=== PATIENT | male | born 1980 | race Caucasian/White ===

== ENCOUNTER 2019-01-24 17:59 | Emergency (ER) | payer OTHER ==
[2019-01-24 18:43] VITALS: BP 110/72; PULSE 76; TEMP 98; BMI 29.5
[2019-01-24] MEDS ORDERED: HEPATITIS B IMMUNE GLOBULIN 5 ML VIAL IM ONE (19:01)
[2019-01-24] MEDS ORDERED: HEPATITIS B VIRUS VACCINE-PF 40 MCG/1 ML VIAL IM ONE (19:02)
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
[2019-02-09 17:55] LABS: HEP B CORE AB, TOT Negative (Negative)
== END 2019-01-24 20:17 | disposition home or self-care (01) ==
LOC: JERFT 17:59 → JER 17:59 → JERFT 20:17
PROC: 3E0234Z Introduction of Serum, Toxoid and Vaccine into Muscle, Percutaneous Approach (ICD-10-PCS; principal; 2019-01-24)
PROC: 3E0234Z Introduction of Serum, Toxoid and Vaccine into Muscle, Percutaneous Approach (ICD-10-PCS; 2019-01-24)
DX: Z77.21 Contact with and (suspected) exposure to potentially hazardous body fluids (principal); Z20.5 Contact with and (suspected) exposure to viral hepatitis; Y35.891A Legal intervention involving other specified means, law enforcement official injured, initial encounter; Y93.89 Activity, other specified; Y92.89 Other specified places as the place of occurrence of the external cause; Y99.0 Civilian activity done for income or pay; Z23 Encounter for immunization
CPT/HCPCS: 36415; 86317; 86704; 86706; 86803; 87340; 87389; 99281-25

== ENCOUNTER 2020-01-28 19:26 | Emergency (ER) | payer OTHER ==
[2020-01-28] MEDS ORDERED: ACETAMINOPHEN 325 MG TABLET (FP) PO ONE (19:31)
[2020-01-28 19:38] VITALS: BP 124/84; PULSE 76; TEMP 98.3; BMI 28.7
[2020-01-28] MEDS ORDERED: ACETAMINOPHEN 325 MG TABLET (FP) ONE (19:40)
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
== END 2020-01-28 20:19 | disposition home or self-care (01) ==
LOC: FER 19:26
DX: R51 Headache (principal)
CPT/HCPCS: 99283-25

== ENCOUNTER 2021-01-16 22:58 | Emergency (ER) | payer OTHER ==
[2021-01-16 23:05] VITALS: BP 122/78; PULSE 115; TEMP 98.6; BMI 29.5
== END 2021-01-17 01:05 | disposition home or self-care (01) ==
LOC: FER 22:58
DX: S83.92XA Sprain of unspecified site of left knee, initial encounter (principal)
CPT/HCPCS: 73562-TC-LT-FY; 99283-25

== ENCOUNTER 2021-06-15 10:27 | Emergency (ER) | payer OTHER ==
[2021-06-15 10:38] VITALS: BP 118/81; PULSE 108; TEMP 98; BMI 29.5
== END 2021-06-15 10:47 | disposition home or self-care (01) ==
LOC: FER 10:27
DX: S00.03XA Contusion of scalp, initial encounter (principal); S06.0X0A Concussion without loss of consciousness, initial encounter; Y04.0XXA Assault by unarmed brawl or fight, initial encounter
CPT/HCPCS: 99281-25

== ENCOUNTER 2022-12-25 21:24 | Emergency (ER) | payer OTHER ==
[2022-12-25 21:39] VITALS: BP 128/89; PULSE 90; RESP 18; TEMP 98.7; BMI 29.6
== END 2022-12-25 23:30 | disposition home or self-care (01) ==
LOC: FER 21:24
DX: S50.02XA Contusion of left elbow, initial encounter (principal); M25.522 Pain in left elbow; W01.198A Fall on same level from slipping, tripping and stumbling with subsequent striking against other object, initial encounter; Y93.89 Activity, other specified; Y92.009 Unspecified place in unspecified non-institutional (private) residence as the place of occurrence of the external cause
CPT/HCPCS: 73070-TC-LT-FY; 99283-25

== ENCOUNTER 2023-10-10 00:12 | Emergency (ER) | payer OTHER ==
[2023-10-10 00:17] VITALS: BP 128/90; PULSE 92; RESP 16; TEMP 97.8; BMI 28.7
== END 2023-10-10 01:04 | disposition home or self-care (01) ==
LOC: FER 00:12
DX: Z77.21 Contact with and (suspected) exposure to potentially hazardous body fluids (principal)
CPT/HCPCS: 99283-25

== ENCOUNTER 2024-03-22 00:24 | Emergency (ER) | payer OTHER ==
[2024-03-22 00:31] VITALS: BP 122/72; PULSE 66; RESP 16; TEMP 98.2; BMI 31.5
== END 2024-03-22 02:27 | disposition home or self-care (01) ==
LOC: FER 00:24
DX: S66.911A Strain of unspecified muscle, fascia and tendon at wrist and hand level, right hand, initial encounter (principal); S80.12XA Contusion of left lower leg, initial encounter; Y35.811A Legal intervention involving manhandling, law enforcement official injured, initial encounter
CPT/HCPCS: 99282-25